=== PATIENT | female | born 1960 | race African-American/Black ===

== ENCOUNTER 2017-09-30 19:17 | Inpatient (IN) | payer OTHER ==
[~2017-09-30] VITALS: Ht 154.9 cm; Wt 54.4 kg
[2017-09-30 19:25] VITALS: BP_SYST 160
--- NOTE | 2017-09-30 19:52 | NUR ---
Patient to ER bed 8 to gown for evaluation. Side rails up. Report given to SARAI SPENCE.
--- NOTE | 2017-09-30 19:55 | NUR ---
Note undone in EDM - 09/30/17 at 2003 by ESTEFANIA Pt presents with abdominal pain on RLQ of 10/31. Headache also noted with no fever. Has medical history of ulcerative colitis, cirrhosis of liver. AAOX4 able to ambulate. Safety precaution obsereved. Will continue to monitor Pt.
--- NOTE | 2017-09-30 19:59 | NUR ---
David garcia in ED - 09/30/17 at 2003 by SDEDLJ OBDULIA NEVES AT BEDSIDE FOR MEDICAL EVALUATION.
--- NOTE | 2017-09-30 19:59 | NUR ---
OBDULIA NEVES AT BEDSIDE FOR MEDICAL EVALUATION.
[2017-09-30] MEDS ORDERED: NACL 0.9% 1,000 ML IV ONE (20:04)
--- NOTE | 2017-09-30 20:04 | NUR ---
ER at bedside examining patient.
[2017-09-30 21:04] LABS: BASOPHILS % (AUTO) 0.4 % (0.0-2.0); EOSINOPHILS % (AUTO) 0.1 % (0.0-4.0); HEMATOCRIT 40.2 % (36-48); HEMOGLOBIN 14.1 g/dL (12.0-16.0); LYMPHOCYTES # (AUTO) 0.8 K/uL (1.0-5.5); LYMPHOCYTES % (AUTO) 10.7 % (20.5-51.5); MEAN CORPUSCULAR HEMOGLOBIN 32 pg (27-31); MEAN CORPUSCULAR HGB CONC 35 % (32-36); MEAN CORPUSCULAR VOLUME 92 fL (79.0-98.0); MONOCYTES # (AUTO) 0.4 K/uL (0.0-1.0); MONOCYTES % (AUTO) 5.8 % (1.7-9.3); NEUTROPHILS # (AUTO) 6.3 K/uL (1.8-7.7); RED BLOOD CELL COUNT(AUTO) 4.37 MIL/uL (4.2-6.2); RED CELL DISTRIBUTION WIDTH 13.6 % (9.0-15.0); WHITE BLOOD COUNT (AUTO) 7.5 K/uL (4.8-10.8)
[2017-09-30 21:08] LABS: CALCIUM 9.2 mg/dL (8.4-11.0); CREATININE 0.99 mg/dL (0.55-1.30); POTASSIUM 4.2 mmol/L (3.5-5.1)
[2017-09-30 21:12] LABS: ALBUMIN 3.3 g/dL (3.4-4.8); TOTAL BILIRUBIN 3.1 mg/dL (0.0-1.0)
[2017-09-30 21:15] LABS: PLATELET COUNT (AUTO) 86 K/uL (130-430)
[2017-09-30] MEDS ORDERED: DOCUSATE SODIUM 100 MG CAPSULE PO PRN (22:00)
[2017-09-30] MEDS ORDERED: ZOLPIDEM TARTRATE 5 MG TABLET PO PRN (22:00)
[2017-09-30] MEDS ORDERED: ONDANSETRON HCL 4 MG/2 ML VIAL IVP PRN ×2 (22:00)
[2017-09-30] MEDS ORDERED: LORazepam 2 MG/ML VIAL IVP PRN (22:00)
[2017-09-30] MEDS ORDERED: ACETAMINOPHEN 325 MG TABLET PO PRN (22:00)
[2017-09-30] MEDS ORDERED: POTASSIUM CHLORIDE 20 MEQ TAB.PRT.SR PO PRN (22:00)
[2017-09-30] MEDS ORDERED: MAGNESIUM SULFATE 50 ML IV PRN (22:00)
[2017-09-30] MEDS ORDERED: MORPHINE 2 MG/ML INJ. SYRINGE IVP PRN ×2 (22:00)
--- NOTE | 2017-09-30 22:10 | NUR ---
ADMIT NOTE Received pt from ER to the floor with a diagnosis of CHOLELITHIASIS. Admission process initiated. patient oriented to pain management, safety and call light-teach back done.
[2017-09-30] MEDS ORDERED: URSO300C24 PO (22:12)
[2017-09-30 22:15] VITALS: BP_SYST 143
--- NOTE | 2017-09-30 22:15 | NUR ---
Patient will be admitted to care of DR. WATTS. Admitted to MEDSURG unit. Will go to room 135. Belongings list completed. Summary report printed. Report will be given at bedside.
[2017-09-30] MEDS ORDERED: LACT10SO7 PO (22:22)
[2017-09-30] MEDS ORDERED: DIGE1TAB PO (22:23)
[2017-09-30 23:04] LABS: FREE T4 (FREE THYROXINE) 0.5 ng/dL (0.6-1.6); PHOSPHORUS 3.4 mg/dL (2.7-4.5); THYROID STIMULATING HORMONE 0.34 uIu/mL (0.34-4.82)
[2017-09-30] MEDS: NACL 0.9% 1,000 ML IV SCH (23:10)
--- NOTE | 2017-09-30 23:15 | NUR ---
2 CONSULTATIONS (SURGERY AND G.I.) PAGED REASON FOR CONSULTATION: COLELITIASIS WAS CONSULT CALLED?: Y PERSON WHO WAS NOTIFIED: KATHIE CONSULTING PHYSICIAN: JUAN GRANGER COMPENSATION AND BENEFITS ANALYST SPECIALTY: G.I. COMPENSATION AND BENEFITS ANALYST PHONE NUMBER: [phone] REQUESTING PHYSICIAN: RAYSA MOSLEY REASON FOR CONSULTATION: COLELITIASIS WAS CONSULT CALLED?: Y PERSON WHO WAS NOTIFIED: JAGRUTI CONSULTING PHYSICIAN: JULIETTE MITCHELL COMPENSATION AND BENEFITS ANALYST SPECIALTY: DESKTOP TECHNICIAN PHONE NUMBER: [phone] REQUESTING PHYSICIAN: RAYSA MOSLEY
--- NOTE | 2017-10-01 00:15 | NUR ---
ADMIT NOTE Received pt from ER to the floor with a diagnosis of DEHYDRATION AND POSSIBLE EARLY PNA. Admission process initiated. patient oriented to pain management, safety and call light-teach done. pt is confused. Addendum: 10/01/17 at 0712 by Alexei Crum RN disregard this note, wrong entry.
[2017-10-01 01:25] VITALS: BP_SYST 131
[2017-10-01 06:30] LABS: BASOPHILS % (AUTO) 0.2 % (0.0-2.0); EOSINOPHILS % (AUTO) 0.3 % (0.0-4.0); HEMATOCRIT 36.2 % (36-48); HEMOGLOBIN 12.4 g/dL (12.0-16.0); LYMPHOCYTES # (AUTO) 1.3 K/uL (1.0-5.5); MEAN CORPUSCULAR HEMOGLOBIN 32 pg (27-31); MEAN CORPUSCULAR HGB CONC 34 % (32-36); MEAN CORPUSCULAR VOLUME 92 fL (79.0-98.0); MONOCYTES # (AUTO) 0.5 K/uL (0.0-1.0); MONOCYTES % (AUTO) 7.3 % (1.7-9.3); NEUTROPHILS # (AUTO) 4.6 K/uL (1.8-7.7); NEUTROPHILS % (AUTO) 72.2 % (40.0-70.0); PLATELET COUNT (AUTO) 70 K/uL (130-430); RED BLOOD CELL COUNT(AUTO) 3.93 MIL/uL (4.2-6.2); RED CELL DISTRIBUTION WIDTH 13.3 % (9.0-15.0); WHITE BLOOD COUNT (AUTO) 6.4 K/uL (4.8-10.8)
--- NOTE | 2017-10-01 06:30 | NUR ---
pt.was admitted via the er-dept from home. accompanied the pt.pt.presents loc;a/o x4.pt.presents abdomen:discomfort;ct-scan;abd/pelvis:cholelithiasis. ws consulted paged. retunded the paged requested updates of labs;drawn in the er-dept.di conveyed the lab values requested.dr. ramirez ordered hida scan:10/01/17.i have witness the pt's singing of the hida scan consent. is presents and is assessing the pt.i have initiated the iv fluids;iv access located lt.antecubital:ns @60ml/hr. pt./is transport to x-ray dept;cxr;2 views.pt.i diet status npo/call light/telephone placed w/in the pt's reach.
[2017-10-01 06:43] LABS: CALCIUM 8.8 mg/dL (8.4-11.0); CREATININE 0.77 mg/dL (0.55-1.30); PHOSPHORUS 3.5 mg/dL (2.7-4.5); POTASSIUM 3.2 mmol/L (3.5-5.1)
[2017-10-01] MEDS ORDERED: NACL 0.9% 1,000 ML IV SCH (06:46)
[2017-10-01] MEDS ORDERED: ONDANSETRON HCL 4 MG/2 ML VIAL IVP PRN (07:00)
[2017-10-01] MEDS ORDERED: MORPHINE 2 MG/ML INJ. SYRINGE IVP PRN ×2 (07:00)
[2017-10-01] MEDS ORDERED: POTASSIUM CHLORIDE 20 MEQ TAB.PRT.SR PO PRN (07:00)
[2017-10-01] MEDS ORDERED: ACETAMINOPHEN 325 MG TABLET PO PRN (07:00)
[2017-10-01] MEDS ORDERED: DOCUSATE SODIUM 100 MG CAPSULE PO PRN (07:00)
[2017-10-01] MEDS ORDERED: ZOLPIDEM TARTRATE 5 MG TABLET PO PRN (07:00)
[2017-10-01] MEDS ORDERED: MAGNESIUM SULFATE 50 ML IV PRN (07:00)
[2017-10-01] MEDS ORDERED: HYDROcodone/ACETAMIN 7.5-325 MG TAB PO PRN (07:15)
[2017-10-01 07:53] LABS: ALBUMIN 2.8 g/dL (3.4-4.8); BILIRUBIN,DIRECT 3.1 mg/dL (0.0-0.3); FREE T4 (FREE THYROXINE) 0.6 ng/dL (0.6-1.6); THYROID STIMULATING HORMONE 0.37 uIu/mL (0.34-4.82); TOTAL BILIRUBIN 3.7 mg/dL (0.0-1.0)
--- NOTE | 2017-10-01 08:00 | NUR ---
INITIAL NOTE PT LAYING IN BED, AWAKE, ALERT AND ORIENTED X4, NO S/S OF ACUTE DISTRESS OR PAIN, VSS. BREATHING EVEN AND UNLABORED, PT AWARE SHE IS NPO AT THE MOMENT. IVF INFUSING TO LFA 20G AT ORDERED RATE, NO S/S OF INFILTRATION NOTED. PT AMBULATORY, WITH STEADY GAIT. PLAN OF CARE DISCUSSED, PT VERBALIZED UNDERSTANDING, SAFETY PRECAUTION IN PLACE, CALL LIGHT WITHIN REACH, WILL FOLLOW UP
--- NOTE | 2017-10-01 08:13 | NUR ---
MD CARDENAS PAGED RAYSA TANG AT [phone] SPOKE WITH .
[2017-10-01] MEDS ORDERED: POTASSIUM CHLORIDE 20 MEQ/PKT PACKET PO ONE (08:15)
[2017-10-01 08:24] VITALS: BP_SYST 125
--- NOTE | 2017-10-01 08:40 | NUR ---
DR MIDDLETON MAKING ROUNDS PER MD PT NEEDS STAT MRCP, IF WE CANNOT DO HERE, THEN PATIENT NEEDS TO TRANSFER TO FACILITY THAT CAN. CHARGE NURSE AND DOCUMENTATION ANALYST MADE AWARE, WILL FOLLOW UP
[2017-10-01] MEDS ORDERED: DOCUSATE SODIUM 100 MG CAPSULE PO SCH (09:00)
[2017-10-01] MEDS: DOCUSATE SODIUM 100 MG CAPSULE PO SCH ×2 (09:00→21:00)
[2017-10-01] MEDS ORDERED: URSODIOL 300 MG CAPSULE PO SCH (09:00)
--- NOTE | 2017-10-01 10:50 | NUR ---
DR FLORES AT BEDSIDE, PT ASSESSED, AGREES WITH NEED FOR MRCP, AWAITING HIDASCAN RESULTS, NEW ORDER FOR IV ANTIBIOTIC RECEIVED, PT MADE AWARE, VERBALIZED UNDERSTANDING, WILL FOLLOW UP
--- NOTE | 2017-10-01 11:30 | NUR ---
CASE MANAGEMENT SPOKE WITH VAIS REGARDING PT TRANSFER TO [facility], C.M STATES SHE IS UNABLE TO GET A HOLD OF ANYONE FROM INSURANCE, STILL IN PROCESS OF TRYING TO TRANSFER PATIENT. PATIENT UPDATED ON STATUS
--- NOTE | 2017-10-01 11:51 | NUR ---
DISCHARGE PLANNING - REQUEST FOR BERTA MRCP - OUTSIDE FACILITY Per Inpt Nursing Printing Agent, MRI is not available for the facility this AM, gastroenterology technician not available until Oct 03. Dr. Renteria is requesting MRCP request sent to [facility]. Informed him, will need for authorization from pt's insurance for MRCP for outside transfer. Dr. Renteria he will contact [facility] Transfer Center to expedite transfer of pt for MRCP procedure. he will call me back for update. Attempted multiple times to contact [facility] ph: [phone] to obtain authorization. All attempts failed to speak to a 'person' to obtain info to reach emergency authorization/claims /UM dept. All responses has been automated vm directing CM that all offices are close and to call on their business hours, Tuesday - Tuesday, 8am to 5pm. Will notify inpt RN caring for pt. Addendum: 10/01/17 at 1213 by Kym Hatfield RN c/s with Antionette MOON inpt for pt that no authorization can be obtained until Tuesday and no outside facility will accept to do procedure w/o prior auth from insurance. Addendum: 10/01/17 at 1452 by Kym Hatfield RN Received call from Dr. Renteria. He stated that he has reached Dr. Ashley Oh, GI Specialist @ [facility] and is accepting pt for MRCP and ERCP. He can also be reached on his personal phone and thru his construction assistant Dorothyisauro Last ph: [phone]. Arrangement to be done thru [facility]. Spoke with Eunice @ [facility] ph: [phone]. Informed her of request and FAX Clinicals to : [phone]. Confirmation receipt received. Addendum: 10/01/17 at 1653 by Kym Hatfield RN C/S with Eunice @[facility]. She stated that procedures are done as Outpt . They can take pt in Tuesday evening and will do procedure Tuesday. Informed Dr. Renteria of above, he wanted to know if MRCP can be done today or tomorrow and ERCP on Tuesday. C/S with Eunice again at the [facility]. She stated she has spoken to Dr. Ashley Oh (GI Specialist @[facility]). He wants to take pt in Tuesday evening and will do all procedure MRCP and ERCP on Tuesday. She stated will be admitted as an Outpt for the requested procedure. Dr Renteria notified and he agreed to proceed with transfer as planned.
[2017-10-01] MEDS: NACL 0.9% 1,000 ML IV SCH ×2 (12:35→22:13)
[2017-10-01] MEDS: DOXYCYCLINE HYCLATE 100 MG in D5W 100 ML IV SCH ×2 (12:35→21:37)
--- NOTE | 2017-10-01 12:40 | NUR ---
IV ANTIBIOTIC HANGED, PT SITTING UP IN BED, READING, NO S/S OF ACUTE DISTRESS, NO ELEVATED TEMPERATURE OR COMPLAINT OF NAUSEA OF VOMITING AT THIS TIME, PT EDUCATED REGARDING NEW MEDICATION, VERBALIZED UNDERSTANDING, STILL AWAITING UPDATE FROM CASE MANAGEMENT REGARDING TRANSFER TO I
[2017-10-01 13:19] VITALS: BP_SYST 137
[2017-10-01] MEDS ORDERED: ONDA4VIA53 IVP (13:44)
[2017-10-01] MEDS ORDERED: DOCU-144 PO (13:44)
[2017-10-01] MEDS ORDERED: HYDR-3921 PO (13:44)
--- NOTE | 2017-10-01 14:30 | NUR ---
PT P/U FOR HIDASCAN
--- NOTE | 2017-10-01 16:24 | NUR ---
CASE MANAGEMENT PER AVIS, SHE SPOKE WITH DR MIDDLETON REGARDING PT NOT ABLE TO TRANSFER UNTIL Tuesday IF HE STILL WANTED TO DO TRANSFER OF CARE. DR MIDDLETON STATED HE ALREADY SPOKE WITH GI DR AT FACILITY AND MD IS READY TO TREAT PATIENT SO WOULD LIKE TO FOLLOW THROUGH WITH TRANSFER Tuesday FOR PATIENT TO DO MRCP AND ERCP EARLY TUESDAY, WILL UPDATE PATIENT
--- NOTE | 2017-10-01 17:00 | NUR ---
PT RETURNED FROM [facility], UPDATED ON PLAN OF CARE, PT TO STAY AND TRANSFER TO [facility] ON [place]UESDAY EVENING, PT VERBALIZED UNDERSTANDING AND AGREEMENT. DR WATTS TO MAKE AWARE ALSO, ORDER RECEIVED FOR PT ADVANCE DIET TO FULL LIQUIDS IF TOLERATED
[2017-10-01] MEDS: PIPERACILLIN/TAZO 3.375/DEX-IS 50 ML IV SCH ×2 (17:02→22:59)
[2017-10-01 17:24] VITALS: BP_SYST 129
--- NOTE | 2017-10-01 18:45 | NUR ---
CLOSING NOTE PT WALKING AROUND IN ROOM, STEADY GAIT, IVF INFUSING TO LFA AT ORDERED RATE, ALL NEEDS ATTENDED TO THROUGHOUT SHIFT, SAFETY PRECAUTIONS MAINTAINED, CALL LIGHT WITHIN REACH, WILL GIVE REPORT TO FOLLOWING SHIFT
--- NOTE | 2017-10-01 19:15 | NUR ---
received call from dr. ramirez- is asking for the result of hida scan. told md-no final reading yet and only image is showing at this time. md request to call him back when we get the result. md also order to continue clear liquid diet.
[2017-10-01 20:30] VITALS: BP_SYST 138
[2017-10-01] MEDS: URSODIOL 300 MG CAPSULE PO SCH (21:00)
[2017-10-01] MEDS ORDERED: DOXYCYCLINE HYCLATE 100 MG in D5W 100 ML IV SCH (21:00)
--- NOTE | 2017-10-01 21:37 | NUR ---
Patient refused Colace and Actigall: Patient scheduled for Colace and Actigall at 2100. Patient refused Colace as she has had 2 bowel movements today. Patient refused Actigall; patient states that Actigall causes her upset stomach and doesn't want to take it if she's on a clear liquid diet. Will continue to monitor patient.
--- NOTE | 2017-10-01 21:45 | NUR ---
Spoke to Dr. Miller: Dr. Miller made aware of results of patient's HIDA scan performed today 10/01/2017. Patient is to continue on clear liquid diet per MD. No further orders. Will continue to monitor patient.
--- NOTE | 2017-10-01 23:25 | NUR ---
Patient in possession of home medications: Patient's home medications are at bedside. Patient states that she has been self-administering these medications since admission. Patient states that dayshift nurse was made aware of these medications and that Dr. Trujillo said it was okay to continue them. Patient made aware of hospital policy regarding home medications. Informed patient that pharmacy will have to inventory her medications until she leaves the hospital. Patient verbalized understanding. All home medications that are currently with patient will be sealed in 2 medication bags and kept in medication room for pharmacy to review.
--- NOTE | 2017-10-01 23:30 | NUR ---
Endorsement of care: Patient is awake in bed, no signs or symptoms of acute distress; patient complains of pain to left upper arm, but does not want pain medications. IV to left AC is patent with no infiltration or redness noted at the site, infusing Zosyn at 100 ML/HR at this time. Safety and fall precautions in place. Care endorsed to SARAI Adler.
--- NOTE | 2017-10-02 00:02 | NUR ---
ASSUMPTION OF CARE Report was received from SARAI Metzger. Patient is stable with no s/s of acute distress. Plan of care and safety precautions were discussed; refusing bed alarm and is aware on how to use call light for any assistance. States she "gets up to go to the bathroom" and "nah uh, I'm not having that thing on." Will continue to encourage.
--- NOTE | 2017-10-02 00:05 | NUR ---
IV RE-INSERTION: Complaining of discomfort to left arm. Restarted on right f/a 22g. Successful after attempts. Resumed current IVF as ordered. See EMAR. Will observe for any signs of infiltration.
--- NOTE | 2017-10-02 00:05 | NUR ---
ALLERGY BAND Allergies reviewed with patient. Allergy band applied.
[2017-10-02 01:54] VITALS: BP_SYST 141
--- NOTE | 2017-10-02 03:57 | NUR ---
RESTING Patient is resting, appears to be sleeping with eyes closed. Breathing is even and unlabored with visible chest rise and fall. Safety precautions in place. Bed alarm remains off as requested. Will continue to monitor.
--- NOTE | 2017-10-02 04:32 | NUR ---
REQUESTED WARM BLANKET Warm blanket was given by MICK Su as requested by patient.
--- NOTE | 2017-10-02 04:36 | NUR ---
DAX FROM [facility] CALLED Dax, nurse project coordinator rn from [facility] called in regards to patient's status. I reported that patient is stable at this time. He stated that they will be in contact with hospitalist later today to arrange transfer. Dax's phone number is [phone] in case he needs to be contacted.
[2017-10-02] MEDS: NACL 0.9% 1,000 ML IV SCH (05:30)
[2017-10-02] MEDS: PIPERACILLIN/TAZO 3.375/DEX-IS 50 ML IV SCH ×2 (05:30→14:57)
[2017-10-02 06:19] LABS: CHOLESTEROL 161 mg/dL (<200); HDL CHOLESTEROL 67 mg/dL (>55); LDL CHOLESTEROL 72 mg/dL (<100); TRIGLYCERIDES 52 mg/dL (30-150)
--- NOTE | 2017-10-02 06:51 | NUR ---
CLOSING NOTES All needs met throughout shift. No significant changes from initial assessment. Patient is resting in bed with unlabored breathing and visible chest rise and fall. Safety and fall precautions maintained. Will endorse care to oncoming day shift nurse.
--- NOTE | 2017-10-02 07:30 | NUR ---
opening note patient awake alert, denies any chest pain/sob. pt refusing bed alarm at this time. call light visibly within reach, with bed in the lowest position. pt encouraged to ca;ll for help during ambulation. safety maintained.
[2017-10-02] MEDS: URSODIOL 300 MG CAPSULE PO SCH (07:58)
[2017-10-02 08:00] VITALS: BP_SYST 130
[2017-10-02] MEDS: DOXYCYCLINE HYCLATE 100 MG in D5W 100 ML IV SCH (08:14)
[2017-10-02] MEDS: DOCUSATE SODIUM 100 MG CAPSULE PO SCH (08:19)
--- NOTE | 2017-10-02 08:20 | NUR ---
am meds ivpb vibramycin hung. actigall and colace refused by patient. safety maintained.
--- NOTE | 2017-10-02 10:00 | NUR ---
PATIENT RESTING: Patient resting quietly. No acute distress noted. Vital signs within normal range.
[2017-10-02 10:10] LABS: T4 (THYROXINE) 6.7 ug/dL (4.5-12.0)
[2017-10-02 10:10] LABS: T4 (THYROXINE) 8.1 ug/dL (4.5-12.0)
[2017-10-02] MEDS ORDERED: CHOLESTYRAMINE/SUCROSE 4 GM/PACKET PO PRN (10:15)
--- NOTE | 2017-10-02 11:16 | NUR ---
DISCHARGE PLANNING - TRANSFER TO [facility] FOR MRCP AND ERCP Texted Dr. Horta, [facility] Director, to get approval for pt's transfer to [facility] for MRCP and ERCP. Spoke with Dr. Juancarlos Renteria (GI Specialist) and informed him of pending transfer approval from Dr. Horta. He stated he will contact Dr. Horta. Received texted message from Dr. Horta and a call back from CM Manager Entry, Keely. Message is to proceed with the Transfer. C/S with Norah, Stonecutter Apprentice Hand, at the [facility] Transfer Center ph: [phone]. She stated they are admitting patient today - they are just waiting for a bed to open. They will call CM as soon as bed is available. Notified pt @ her bedside of above update. Addendum: 10/02/17 at 1623 by Kym Hatfield RN Attempted to contact Norah, [facility] Stonecutter Apprentice Hand or anyone at the [facility] Transfer Center ph: [phone]. Left vm ff-up on transfer. Left vm for CM and contact ph# for [facility] ph: [phone] ext [phone] /or [phone]. Transfer packet @ [facility]. Inpt RN and Charge Nurse aware.
[2017-10-02 12:00] VITALS: BP_SYST 129
--- NOTE | 2017-10-02 12:45 | NUR ---
ROUNDS PATIENT IN BED WITH FAMILY NO DISTRESS NOTED. SAFETY MAINTAINED
--- NOTE | 2017-10-02 15:00 | NUR ---
nadiya calix hung at this time
[2017-10-02 16:00] VITALS: BP_SYST 121
--- NOTE | 2017-10-02 16:47 | NUR ---
IV RE-INSERTION: Complaining of pain to IV site. Restarted on RFA 22g . Successful after 1 attempts. Resumed current IVF of normal saline and regulated @ 100 per hour. Will observe for any signs of infiltration.
[2017-10-02 17:23] VITALS: BP_SYST 121
--- NOTE | 2017-10-02 17:52 | NUR ---
PT TRANSFERRED Report given to at [facility]. Transfer packet with Transfer Orders and Medication Reconciliation form given to EMT with report. Exitcare provided. [facility] ID band removed, replaced with ID band with pt's name and . IV catheter removed, intact and dressing applied, no active bleeding. All belongings sent with patient. Patient left floor via gurney escorted by EMT in no distress.
[2017-10-02] MEDS ORDERED: RIFAXIMIN 550 MG TABLET PO SCH (21:00)
[2017-10-02] MEDS ORDERED: LACTULOSE 20 GM/30 ML UDC PO SCH (21:00)
[2017-10-02] MEDS ORDERED: LACTASE 3000 UNIT TABLET PO SCH (21:00)
== END 2017-10-02 17:52 | disposition short-term general hospital (02) | DRG 445 ==
LOC: SED 19:17 → SMU 21:53
PROVIDERS: ADMIT Family Medicine; ATTEND Family Medicine
DX: K80.00 Calculus of gallbladder with acute cholecystitis without obstruction (principal); K51.90 Ulcerative colitis, unspecified, without complications; K56.7 Ileus, unspecified; K83.0 Cholangitis; E87.6 Hypokalemia; K74.60 Unspecified cirrhosis of liver; R09.1 Pleurisy; N30.10 Interstitial cystitis (chronic) without hematuria; R62.7 Adult failure to thrive; Z90.710 Acquired absence of both cervix and uterus; Z88.8 Allergy status to other drugs, medicaments and biological substances; Z88.6 Allergy status to analgesic agent; Z88.0 Allergy status to penicillin; Z88.2 Allergy status to sulfonamides; Z91.018 Allergy to other foods; Z98.891 History of uterine scar from previous surgery; Z79.899 Other long term (current) drug therapy
CPT/HCPCS: 36415; 71046-TC; 78226; 80048; 80053; 80061; 80076; 82150-TC; 83036; 83690-TC; 83735-TC; 83880; 84100-TC; 84436; 84439; 84443-TC; 84479; 85025; 96360; 99285; A9537; J2543; J3490; J7030; J7060